=== PATIENT | male | born 1980 | race Caucasian/White ===

== ENCOUNTER 2018-10-11 18:02 | Emergency (ER) | payer OTHER ==
[~2018-10-11] VITALS: Ht 193 cm; Wt 142.9 kg
[2018-10-11] MEDS ORDERED: ACCUNEB SO1.25 MG/1 INH (18:34)
[2018-10-11 19:20] LABS: URINE BLOOD NEGATIVE (Negative); URINE CLARITY CLEAR; URINE COLOR YELLOW; URINE GLUCOSE-RANDOM* NEGATIVE (Negative); URINE KETONES TRACE (Negative); URINE LEUKOCYTES-REFLEX NEGATIVE (Negative); URINE NITRITE-REFLEX NEGATIVE (Negative); URINE PROTEIN (DIPSTICK) 2+ (Negative); URINE SPECIFIC GRAVITY 1.015 (1.005-1.035)
[2018-10-11 19:24] LABS: ICTOTEST (BILI CONFIRMATORY) Negative (Negative); URINE BILIRUBIN NEGATIVE (Negative)
[2018-10-11 19:36] LABS: CASTS None Seen /LPF (None Seen); SQUAMOUS 0-3 Few /LPF (0-3); URINE WBC-REFLEX 0-5 Rare /HPF (0-5)
[2018-10-11 19:37] LABS: BACTERIA-REFLEX None Seen /HPF (None Seen); CRYSTALS None Seen /LPF (None Seen); URINE RBC None Seen /HPF (0-2)
[2018-10-11 19:51] VITALS: BP 153/94
== END 2018-10-11 19:51 | disposition home or self-care (01) ==
LOC: ER 18:02 → EDBD 18:02 → ER 19:51
PROVIDERS: Emergency Medicine
DX: R50.9 Fever, unspecified (principal); Z88.2 Allergy status to sulfonamides